=== PATIENT | female | born 1960 | race Caucasian/White ===

== ENCOUNTER 2021-04-05 05:30 | Day surgery (SDC) | payer SELFPAY ==
[~2021-04-05] VITALS: Ht 165 cm; Wt 98.0 kg
[~2021-04-05 05:30] MED LIST: ASPIRIN EC81 MG PO; BIOTIN10000 MCG PO; BUSPAR5 MG PO; CELEXA10 MG PO; CILOSTAZOL50 MG PO; CLARITIN10 MG PO; LIPITOR20 MG PO; PERCOCET 5-3251 EACH PO; PRILOSEC20 MG PO; PRINIVIL20 MG PO; SYNTHROID100 MCG PO; ULTRAM50 MG PO; VITAMIN D350 MC3 PO; VOLTAREN **OUT75 MG PO; ZESTORETIC 20-1 EACH PO; ZOCOR20 MG PO; ZOFRAN4 MG PO
--- NOTE | 2021-04-05 12:37 | NUR ---
PT HAD A LTKR THIS DATE. PT. WILL D/C HOME WITH SPOUSE. [facility] DELIVERED A [facility]. PT. REQUESTED PIPE. FIRST APPT IS 04/07/21 @ 11:30 A.M. CHOICE FORM SIGNED AND COPY GIVEN.
[2021-04-06 07:11] LABS: BASOPHIL 0.1 % (0-2); EOSINOPHIL 0.1 % (0-5); HGB 11.1 g/dl (12.5-16.0); LYMPHOCYTE 10.8 % (15-48); MCH 30.6 pg (25.0-31.0); MCHC 32.6 g/dL (32.0-36.0); MCV 93.7 fL (78.0-100.0); MONOCYTE 6.7 % (0-12); MPV 10.3 fL (6.0-9.5); NEUTROPHIL 81.6 % (41-80); NRBC 0; PLT 191 K/uL (150-400); RBC 3.63 M/uL (4.20-5.40); RDW 12.6 % (11.5-14.0); WBC 10.7 K/uL (4.0-10.5)
[2021-04-06 08:41] LABS: BUN/CREAT RATIO (CALC) 26.7 RATIO; CREATININE 0.75 mg/dL (0.51-0.95); POTASSIUM 4.1 mmol/L (3.5-5.1)
[2021-04-06] MEDS ORDERED: FEOSOL325 MG PO (08:57)
[2021-04-06] MEDS ORDERED: ONDANSETRON HCL4 MG PO (12:00)
== END 2021-04-06 11:30 | disposition home or self-care (01) ==
LOC: FAS 05:30 → FSDC 08:31 → FAS 04-06 11:30
PROVIDERS: Orthopaedic Surgery
DX: M17.12 Unilateral primary osteoarthritis, left knee (principal); I10 Essential (primary) hypertension; E03.9 Hypothyroidism, unspecified; E78.5 Hyperlipidemia, unspecified; K21.9 Gastro-esophageal reflux disease without esophagitis; R11.2 Nausea with vomiting, unspecified; Z87.891 Personal history of nicotine dependence; Z79.82 Long term (current) use of aspirin; Z79.899 Other long term (current) drug therapy
CPT/HCPCS: 36415; 73560; 80048; 85025; 86850; 86900; 86901; 94010; 97110; 97162; 97166; 97530-GP; 97535; C1713; C1776; J0171; J0697; J1100; J1170; J1885; J2250; J2270; J2405; J2704; J2795; J3010; J7120